=== PATIENT | male | born 1985 | race African-American/Black ===

== ENCOUNTER 2021-05-07 04:39 | Emergency (ER) | payer SELFPAY ==
[2021-05-07] MEDS ORDERED: Dexamethasone 10 MG/ML SDV IM STA (04:55)
[2021-05-07] MEDS ORDERED: Ketorolac 30 MG/ML SDV IM ONE (04:55)
== END 2021-05-07 05:30 | disposition home or self-care (01) ==
LOC: MW.ED 04:39
DX: G56.03 Carpal tunnel syndrome, bilateral upper limbs (principal)
CPT/HCPCS: 96372; 99283; J1100; J1885; 99282

== ENCOUNTER 2022-03-08 11:14 | Emergency (ER) | payer SELFPAY ==
[2022-03-08] MEDS ORDERED: Ketorolac 30 MG/ML SDV IM STA (11:40)
[2022-03-08] MEDS ORDERED: Dexamethasone 10 MG/ML SDV IM STA (11:40)
== END 2022-03-08 12:14 | disposition home or self-care (01) ==
LOC: MW.ED 11:14
DX: G56.03 Carpal tunnel syndrome, bilateral upper limbs (principal)
CPT/HCPCS: 96372; 99283; J1100; J1885

== ENCOUNTER 2022-04-10 04:03 | Emergency (ER) | payer SELFPAY ==
[2022-04-10] MEDS ORDERED: Ibuprofen 400 MG Tab PO ONE (04:19)
[2022-04-10] MEDS ORDERED: Acetaminophen 325 MG Tab PO ONE (04:19)
== END 2022-04-10 04:53 | disposition home or self-care (01) ==
LOC: MW.ED 04:03
DX: M79.622 Pain in left upper arm (principal); M79.621 Pain in right upper arm; M25.521 Pain in right elbow; M25.522 Pain in left elbow
CPT/HCPCS: 99283; A9270